=== PATIENT | female | born 2005 | race Caucasian/White ===

== ENCOUNTER 2025-07-15 19:24 | Outpatient (REF) | payer OTHER, SELFPAY ==
--- NOTE | ~2025-07-15 | MR_ITS ---
CLINICAL HISTORY: pain MR left ankle without gadolinium Comparison: None provided Findings: No acute fractures. No pathologic bone lesions. Large subtalar joint effusion. Medial and lateral ligamentous complexes are intact. Flexor, extensor, and peroneal tendons are intact. Achilles tendon is intact. Intact plantar fascia. IMPRESSION: 1. Subtalar joint effusion. This document has been electronically signed by: Guanaco Ramos MD on 07/15/2025 20:28:36
--- OUTSIDE RECORDS SUMMARY | 2025-07-15 19:27 | XMS_ITS | Clinical Summary ---
Author Organization [facility] Address [address] [place] [address] Care Team Providers Care Industrial Roof Plumber Name Role Phone Crystal Luo NP Primary Care Provider + [phone] Social History Tobacco Use Types Packs/Day Years Used Date Smoking Tobacco: Never Assessed Comments Unknown Sex and Gender Information Value Date Recorded Sex Assigned at Not on file Legal Sex Female 9:13 PM EDT Gender Identity Not on file Sexual Orientation Not on file Plan of Treatment Not on file [facility] Care Teams Industrial Roof Plumber Relationship Specialty Start Date End Date Crystal Luo NP [address] [address] PCP - General Pediatrics 10/18/22
--- OUTSIDE RECORDS SUMMARY | 2025-07-15 19:27 | XMS_ITS | Clinical Summary ---
Author Organization [facility] Address [address] [place] [address] Phone Care Team Providers Care Enrollment Consultant Name Role Phone Reece Vasquez MD Primary Care Provider + Reece Vasquez MD Unavailable [phone] Harpreet John MD Unavailable [phone]- Reece Vasquez MD Unavailable [phone] Harpreet John MD Unavailable +[phone]- Reece Vasquez MD Unavailable [phone] Immunizations Immunization Administration Dates Next Due Influenza, Unspecified 06/12/2020 Pfizer Purple Cap SARS-CoV-2 03/23/2021,03/03/20 21 Social History Tobacco Use Types Packs/Day Years Used Date Smoking Tobacco: Never Passive Smoke Exposure: Never Smokeless Tobacco: Never Tobacco Cessation:Counseling Given: Not Answered Comments Unknown Sex and Gender Information Value Date Recorded Sex Assigned at Not on file Legal Sex Female 7:41 PM EDT Gender Identity Not on file Sexual Orientation Not on file Last Filed Vital Signs Vital Sign Reading Time Taken Comments Blood Pressure 126/65 03/17/2025 12:47 PM EDT Pulse - - Temperature - - Respiratory Rate - - Oxygen Saturation - - Inhaled Oxygen Concentration - - Weight 82.5 kg (181 lb 14.1 oz) 025 12:47 PM EDT Height 190.3 cm (6' 2.92 ) 03/17/2025 1 2:47 PM EDT Body Mass Index 22.78 03/17/2025 12:47 PM EDT Plan of Treatment Health Maintenance Due Date Last Done Comments Chlamydia and Gonorrhea Screening 2005 HIV Screening 2005 MMR Vaccines (1 of 1 - Standard series) 2006 HPV Vaccines (2 - 2-dose series) 12/13/2016 06/15/2016 Anemia Screening 2017 DTaP/Tdap/Td Vaccines (2 - Td or Tdap) 10/08/2017 09/10/2017 Varicella Vaccines (1 of 2 - 13+ 2-dose series) 2018 Meningococcal B Vaccine (1 of 2 - Standard) 2021 Hepatitis C Screening 2023 Hepatitis B Vaccines (1 of 3 - 19+ 3-dose series) 02/15/2024 Influenza Vaccine (#1) 2025 , 06/18/2022, 06/17/2021, Additional history exists Meningococcal Vaccine Completed 05/25/2021, 017 Hepatitis A Vaccines Completed 06/10/2022, 05/25/20 21 HIB Vaccines Aged Out No longer eligi ble based on patient's age to complete this topic IPV Vaccines Aged Out No longer eligi ble based on patient's age to complete this topic Pneumococcal Vaccine: Pediatrics (0 to 5 Years) and At-Risk Patients (6 to 49 Years) Aged Out No longer eligible based on patient's age to complete this topic Rotavirus Vaccines Aged Out No longer eligible based on patient's age to complete this topic Insurance [facility] Care Teams Enrollment Consultant Relationship Specialty Start Date End Date Reece Vasquez MD [address] [place] [id number] PCP - General 10/20/08 Reece Vasquez MD [address] [place] [address] PCP - Insurance PCP 05/21/18 Reece Vasquez MD [address] [place] [address] PCP - Clinical PCP 10/27/13 Reece Vasquez MD [address] [place] [address] PCP - Insurance Identified PCP 03/31/24 Harpreet John MD [address] [place] [address] Associate Attending Cardiology 02/10/15 Harpreet John MD [address] [place] [address] HC Associate Professor Of Geology 03/15/24
--- OUTSIDE RECORDS SUMMARY | 2025-07-15 19:27 | XMS_ITS | Encounter Summary ---
Author Organization [facility] Address [address] [place] [address] Care Team Providers Care Senior Corporate Accountant Name Role Phone Crystal Luo NP Primary Care Provider [phone] Encounter Details Date Type Department Care Team (Late st Contact Info) Description 10/18/2022 Lab Requisition [address] [address] Crystal Luo NP [facility] [address] [place] [address] Encounter for other specified special examinations Social History Tobacco Use Types Packs/Day Years Used Date Smoking Tobacco: Never Assessed Comments Unknown Sex and Gender Information Value Date Recorded Sex Assigned at Not on file Legal Sex Female 9:13 PM EDT Gender Identity Not on file Sexual Orientation Not on file documented as of this encounter Plan of Treatment Not on file documented as of this encounter Procedures Procedure Name Priority Date/Time Associated Diagnosis Comments URINE COMPLETE Routine 10/18/2022 5:00 PM EST Encounter for other specified special examinations URINE CULTURE AND COLONY COUNT Routine 10/18/2022 5:00 PM EST Encounter for other specified special examinations documented in this encounter Results * (ABNORMAL) Urine Culture and [place] Count (10/18/2022 5:00 PM EST) Culture > 100,000 colonies/ml Staphylococcus coagulase negative(A) SUSCEPTIBI LITY TESTING 10/19/2022 6:49 PM EST [facility] Urine specimen (specimen) Urine specimen / Unknown Collection / Unknown 10/18/2022 5:00 PM EST 10/18/2022 7:25 PM EST [facility] - 10/19/2022 6:49 PM EST *CLSI guideline: Routine susceptibility testing of urine isolates of Coagulase negative Staph is not advised because infections respond to concentrations achieved in urine of antimicrobial agents commonly used to treat acute, uncomplicated urinary tract infections (i.e., nitrofurantoin, trimeth/sulfa, or a fluoroquinolone.)* Crystal Luo NP MICROBIOLOGY - GENERAL OR DERABLES Final Result [facility] [address] [place] [address] * (ABNORMAL) Urine Complete (10/18/2022 5:00 PM EST) Pathologist [facility] Clarity, UA Turbid(A) Clear 10/18/2022 8:15 PM EST [facility] Color Yellow Yellow 10/18/2022 8:15 PM [facility] Specific [place] 1.031(H) 1.005 - 1.030 10/18/2022 8:15 PM [facility] pH 6.0 5.0 - 7.0 10/18/2022 8:15 PM [facility] Protein 100(A) Negative mg/dL 10/18/2022 8:15 PM [facility] Glucose Negative Negative mg/dL 10/18/2022 8:15 PM [facility] Ketones Negative Negative mg/dL 10/18/2022 8:15 PM [facility] Blood 0.03(A) Negative mg/dL 10/18/2022 8:15 PM [facility] Bilirubin UA Negative Negative mg/dL 10/18/2022 8:15 PM [facility] Urobilinogen Normal Normal mg/dL 10/18/2022 8:15 PM [facility] Nitrite Negative Negative 10/18/2022 8:15 PM [facility] Leukocyte Esterase 250(A) Negative Delmi/uL 10/18/2022 8:15 PM [facility] WBC >100(A) 0 - 2 HPF 10/18/2022 8:15 PM EST [facility] RBC 51-100(A) 0 - 2 HPF 10/18/2022 8:15 PM EST [facility] Squam Epithelial Few Few HPF 10/18/19 8:15 PM EST [facility] Mucus Few Few HPF 10/18/2022 8:15 PM EST [facility] Bacteria Few(A) None Seen HPF 10/18/2022 8:15 PM EST [facility] Urine specimen (specimen) Urine specimen / Unknown Collection / Unknown 10/18/2022 5:00 PM EST 10/18/2022 7:25 PM EST Crystal Luo NP URINE ORDERABLES Final Re sult [facility] [address] [place] [address] documented in this encounter Visit Diagnoses Diagnosis Encounter for other specified special examinations documented in this encounter Care Teams Senior Corporate Accountant Relationship Specialty Start Date End Date Crystal Luo NP [facility] [address] [place] [address] PCP - General Pediatrics 10/18/22 documented as of this encounter
--- OUTSIDE RECORDS SUMMARY | 2025-07-15 19:27 | XMS_ITS | Clinical Summary ---
Author Organization [facility] Address [address] [place] [address] Care Team Providers Care Shovel Logger Name Role Phone Reece Vasquez MD Primary Care Provider [phone] Allergies Active Allergy Reactions Criticality Noted Date Comments Polymyxin B-Trimethoprim 02/24/2024 Medications * This document contains information received from the source organization and may not represent a complete record from that organization. valACYclovir (Valtrex) 1 g tablet 4 Active mupirocin (Bactroban) 2 % ointment Apply topically in the morning and before bedtime. 1 g 5 Active Active Problems No known active problems Social History Tobacco Use Types Packs/Day Years Used Date Smoking Tobacco: Never Tobacco Cessation:Counseling Given: Not Answered Alcohol Use Standard Drinks/Week Comments Never 0 (1 standard drink = 0.6 oz pur e alcohol) Comments Unknown Sex and Gender Information Value Date Recorded Sex Assigned at Not on file Legal Sex Female 8:46 PM EDT Gender Identity Not on file Sexual Orientation Not on file Last Filed Vital Signs Vital Sign Reading Time Taken Comments Blood Pressure 112/73 04/01/2025 10:42 AM EDT Pulse 93 04/01/2025 10:42 AM EDT Temperature 36.8 C (98.2 F) 04/01/2025 10:42 AM EDT Respiratory Rate 18 04/01/2025 10:42 AM EDT Oxygen Saturation 100% 04/01/2025 10:42 AM EDT Inhaled Oxygen Concentration - - Weight - - Height - - Body Mass Index - - Plan of Treatment Health Maintenance Due Date Last Done Comments Hepatitis C Screening 2005 HPV Vaccines (2 - 2-dose series) 12/13/2016 06/15/2016 HIV Screening 02/15/2020 Chlamydia Screening 2021 Annual Wellness Visit 2023 COVID-19 Vaccine ( season) 2025 10/11/2021, 03/23/2021, 03/03/2021 Influenza Vaccine (#1) 2025 , 06/18/2022, 06/17/2021, Additional history exists DTaP,Tdap,and Td Vaccines (2 - Td or Tdap) 09/10/2027 09/10/2017 Meningococcal Vaccine Completed 05/25/2021, 017 Hepatitis A Vaccines Discontinued 06/10/2022, 05/25/20 21 Pneumococcal Vaccine: Pediatrics (0 to 5 Years) and At-Risk Patients (6 to 64 Years) Aged Out No longer eligible based on patient's age to complete this topic Insurance [facility] HMO/POS Care Teams Shovel Logger Relationship Specialty Start Date End Date Reece Vasquez MD [address] [place], [place] [address], [place] [phone] PCP - General Pediatrics 02/24/24
== END 2025-07-15 19:25 | disposition home or self-care (01) ==
LOC: HO.MRI 19:24
PROVIDERS: Visit Provider Student in an Organized Health Care Education/Training Program
DX: M25.572 Pain in left ankle and joints of left foot (principal)
CPT/HCPCS: 73721

== ENCOUNTER → 2025-07-15 19:24 | Outpatient (BNV) | payer OTHER, SELFPAY | PROVIDERS: Visit Provider Specialist | DX: M25.472 Effusion, left ankle (principal) | CPT/HCPCS: 73721 ==

== ENCOUNTER 2025-07-28 12:20 | Outpatient (AMB) | payer OTHER, SELFPAY ==
--- NOTE | 2025-07-28 12:35 | A.OFFVIS_ITS ---
Intake Visit Reasons: post tib tendonitis- stress reaction on medial trav Intake Note: Ayleen is a 20 year old female who presents today as a new patient for an evaluation of her post tib tendonitis. Patient reports her ankle has been doing well and she has not done a lot of weight bearing. She states she has been in the walking boot for about 2 weeks. She would like to know on her next step towards her recovery. Findings: No acute fractures. No pathologic bone lesions. Large subtalar joint effusion. Medial and lateral ligamentous complexes are intact. Flexor, extensor, and peroneal tendons are intact. Achilles tendon is intact. Intact plantar fascia. IMPRESSION: 1. Subtalar joint effusion. 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 She reports a history of a medial malleolar stress fracture on her right ankle a few years ago that was treated with casting for approximately 1-2 months. Recently, she began experiencing a soreness to her left ankle over the past several months, which worsened with activity after practice/drills, which concerned her for a similar injury to her left ankle. An MRI was conducted on 07/15/25, and the [facility] sports medicine doctor(s) placed her in a CAM boot since then. She was recommended referral for management of MRI findings and possible orthotics. She is currently undergoing eccentric exercises and a passive/sitting therapy regimen with her trainers, including calf/hamstring stretching. Review of Systems Const All systems reviewed & are unremarkable except as noted in HPI and below Physical Exam Extrem Other: *Bilateral Lower Extremity Focused Exam Vascular: DP/PT 2/4, CFT<3s to digits, TG warm to cool, mild left medial ankle edema Derm: No open wounds or lacerations. No clinical signs of infection. No ecchymosis or bruising. Neuro: Protective sensation grossly intact to bilateral lower extremities MSK: Moderate tenderness on direct palpation of the anterior-medial aspect of the medial malleolus ((anterior colliculus or inter-colliculus region)). No pain on eversion, external rotation, resisted inversion and eversion. Negative anterior drawer sign. Positive talar tilt with 3:1 ankle inversion to eversion. No pain on palpation or range of motion of the lateral ankle ligaments. No pain to the sinus tarsi. No pain along the posterior tibial tendon from its insertion to its origin. On non-weightbearing, the patient has a moderate to high arch foot type. On weight-bearing: - arch collapses to a normal arch type. - left calcaneus is in neutral position. - bilateral calcaneus invert on heel rise. - single heel rise performed, no pain elicited.. Results Reviewed Results Reviewed: Personal Read: 07/15/2025 MRI left ankle without contrast reviewed which shows: Increased signal on T2 along the medial malleolus with no occult fracture noted, increased signal at the deltoid ligament insertion of the tip of the medial malleolus. 12mm x 5mm thickening of the posterior tibialis tendon, 2 cm proximal to the navicular insertion, no intertendinous tears. Intact ATFL ligament, intact deltoid ligament, intact ATFL. Peroneus tendons appear intact and within normal limits. No osteochondral defects. Anatomic alignment of the tibiotalar joint. Bone density is within normal limits. I personally reviewed the imaging and my findings are listed above. 07/15/2025 MRI left ankle Radiology Impression: Findings: No acute fractures. No pathologic bone lesions. Large subtalar joint effusion. Medial and lateral ligamentous complexes are intact. Flexor, extensor, and peroneal tendons are intact. Achilles tendon is intact. Intact plantar fascia. IMPRESSION: 1. Subtalar joint effusion. Assessment & Plan Assessment & Plan (1) Stress fracture of ankle: Code(s): M84.373A - Stress fracture, unspecified ankle, initial encounter for fracture Category: Medical Qualifiers: Encounter type: initial encounter Laterality: left Qualified Code(s): M84.372A - Stress fracture, left ankle, initial encounter for fracture Plan: * The patient has a history of right medial malleolar stress fracture * The patient has microfracture of the medial malleolar trabecula or bone bruise to the left ankle. It was explained to the patient and the assistant athletic trainer that this could be an early sign of a stress fracture, at least indicating i ncreased stress/loading on her medial malleolus. * Given her contralateral ankle stress fracture history, she was recommended treating this as an early stress fracture. This necessitates at least 4 weeks of protected weight-bearing in a CAM boot followed by gradual weaning with a lace-up ankle brace. * Weight-bearing Recommendation: The patient has been in a CAM boot for complete approximately 2 weeks. She is recommended at least 2 further weeks of weight- bearing in the boot. * Rehab protocol recommendation: Continue passive range of motion exercises for her PT tendon, decrease gastroc-soleus equinus, and gradually transition to weight-bearing eccentric exercises once out of the CAM boot. She may begin protected weight-bearing exercises in 1 week if the patient clinical symptoms continue to improve and no pain is noted. 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 * Follow up in 2 weeks for Orthotics casting prescription referral. We will plan to discontinue the CAM boot at that time and transition to an ankle brace versus compression sleeve. She may not require repeat MRI if she has no clinical symptoms. (2) Ankle ligament laxity: Code(s): M24.273 - Disorder of ligament, unspecified ankle Category: Medical Qualifiers: Laterality: left Qualified Code(s): M24.272 - Disorder of ligament, left ankle Plan: * The patient may be having increased loading to the medial malleolus due to uncompensated varus stress to her medial malleolus due to her lateral ankle ligament laxity. She may require protected sleeve/bracing when playing in addition to her taping. * She will be trialed with a valgus wedge posting of her hindfoot in a custom orthotic device to protect her ankle from increased varus stress during heel strike. * The patient's national sales trainer was recommended sending her previously performed weight-bearing x-rays to our office to evaluate for any subtalar joint compensation that occurs on weight-bearing. Otherwise, she will be referred for new weight-bearing x-rays. Coding Level of Care Code New Pt Level 4 (34873) Diagnoses Stress fracture of left ankle, initial encounter M84.372A Encounter type: initial encounter Laterality: left Ligamentous laxity of left ankle M24.272 Laterality: left Time Spent (min) 45
--- OUTSIDE RECORDS SUMMARY | 2025-07-28 15:01 | XMS_ITS | Clinical Summary ---
Author Organization [facility] Address [address] [place] [address] Care Team Providers Care Engineer Fishing Vessel Name Role Phone Reece Vasquez MD Primary Care Provider [phone] Allergies Active Allergy Reactions Criticality Noted Date [...] patient's age to complete this topic Insurance [facility] HMO/POS Care Teams Engineer Fishing Vessel Relationship Specialty Start Date End Date Reece Vasquez MD [address] [place], [place] [address], [place] [phone] PCP - General Pediatrics 02/24/24
--- OUTSIDE RECORDS SUMMARY | 2025-07-28 15:01 | XMS_ITS | Clinical Summary ---
Author Organization [facility] Address [address] [place] [address] Phone Care Team Providers Care Dairy Associate Name Role Phone Reece Vasquez MD Primary Care Provider [phone] Reece Vasquez MD Unavailable [phone] Harpreet John MD Unavailable [phone]- Reece Vasquez MD Unavailable [phone] Harpreet John MD Unavailable [phone]- Reece Vasquez MD Unavailable [phone] Immunizations Immunization Administration Dates Next Due Influenza, [...] age to complete this topic Insurance [facility] Care Teams Dairy Associate Relationship Specialty Start Date End Date Reece Vasquez MD [address] [place] [id number] PCP - General 10/20/08 Reece Vasquez MD [address] [place] [address] PCP - Insurance PCP 05/21/18 Reece Vasquez MD [address] [place] [id number] PCP - Clinical PCP 10/27/13 Reece Vasquez MD [address] [place] [address] PCP - Insurance Identified PCP 03/31/24 Harpreet John MD [address] [place] [address] Associate Attending Cardiology 02/10/15 Harpreet John MD [address] [place] [address] HC Section Forest Fire Warden 03/15/24
--- OUTSIDE RECORDS SUMMARY | 2025-07-28 15:01 | XMS_ITS | Encounter Summary ---
Author Organization [facility] Address [address] [place] [address] Care Team Providers Care Utilization Management Nurse Name Role Phone Crystal Luo NP Primary Care Provider [phone] Encounter Details Date Type Department Care Team (Late st Contact Info) Description 10/18/2022 Lab Requisition [address] [address] Crystal Luo NP [facility] [address] [place] [address] Encounter for other specified special examinations Social [...] encounter Results * (ABNORMAL) Urine Culture and Maynard Count (10/18/2022 5:00 PM EST) Culture > 100,000 colonies/ml Staphylococcus coagulase negative(A) SUSCEPTIBI LITY TESTING 10/19/2022 6:49 PM EST [facility] Urine specimen (specimen) Urine specimen / Unknown Collection / Unknown 10/18/2022 5:00 PM EST 10/18/2022 7:25 PM EST [facility] - 10/19/2022 6:49 PM EST *CLSI guideline: Routine susceptibility testing of urine isolates of Coagulase negative Staph is not advised because infections respond to concentrations achieved in urine of antimicrobial agents commonly used to treat acute, uncomplicated urinary tract infections (i.e., nitrofurantoin, trimeth/sulfa, or a fluoroquinolone.)* Crystal Luo NP MICROBIOLOGY - GENERAL OR DERABLES Final Result [facility] [address] [place] [address] * (ABNORMAL) Urine Complete (10/18/2022 5:00 PM EST) Pathologist [facility] Clarity, UA Turbid(A) Clear 10/18/2022 8:15 PM EST [facility] Color Yellow Yellow 10/18/2022 8:15 PM [facility] Specific [place] 1.031(H) 1.005 - 1.030 10/18/2022 8:15 PM [facility] pH 6.0 5.0 - 7.0 10/18/2022 8:15 PM [facility] Protein 100(A) Negative mg/dL 10/18/2022 8:15 PM [facility] Glucose Negative Negative mg/dL 10/18/2022 8:15 PM [facility] Ketones Negative Negative mg/dL 10/18/2022 8:15 PM [facility] Blood 0.03(A) Negative mg/dL 10/18/2022 8:15 PM [facility] Bilirubin UA Negative Negative mg/dL 10/18/2022 8:15 PM [facility] Urobilinogen Normal Normal mg/dL 10/18/2022 8:15 PM [facility] Nitrite Negative Negative 10/18/2022 8:15 PM [facility] Leukocyte Esterase 250(A) Negative Delmi/uL 10/18/2022 8:15 PM [facility] WBC >100(A) 0 - 2 HPF 10/18/2022 8:15 PM EST [facility] RBC 51-100(A) 0 - 2 HPF 10/18/2022 8:15 PM EST [facility] Squam Epithelial Few Few HPF 10/18/19 8:15 PM EST [facility] Mucus Few Few HPF 10/18/2022 8:15 PM EST [facility] Bacteria Few(A) None Seen HPF 10/18/2022 8:15 PM EST [facility] Urine specimen (specimen) Urine specimen / Unknown Collection / Unknown 10/18/2022 5:00 PM EST 10/18/2022 7:25 PM EST Crystal Luo NP URINE ORDERABLES Final Re sult [facility] [address] [place] [address] documented in this encounter Visit Diagnoses Diagnosis Encounter for other specified special examinations documented in this encounter Care Teams Utilization Management Nurse Relationship Specialty Start Date End Date Crystal Luo NP [facility] [address] [place] [address] PCP - General Pediatrics 10/18/22 documented as of this encounter
--- OUTSIDE RECORDS SUMMARY | 2025-07-28 15:01 | XMS_ITS | Clinical Summary ---
Author Organization [facility] Address [address] [place] [address] Care Team Providers Care Funeral Pre Arrangement Specialist Name Role Phone Crystal Luo NP Primary Care Provider + [phone] Social History Tobacco Use Types Packs/Day Years Used Date Smoking Tobacco: Never Assessed Comments Unknown Sex and Gender Information Value Date Recorded Sex Assigned at Not on file Legal Sex Female 9:13 PM EDT Gender Identity Not on file Sexual Orientation Not on file Plan of Treatment Not on file Insurance [facility] Care Teams Funeral Pre Arrangement Specialist Relationship Specialty Start Date End Date Crystal Luo NP [address] [address] PCP - General Pediatrics 10/18/22
== END 2025-07-28 13:04 | disposition home or self-care (01) ==
LOC: HO.HPODS 12:21
PROVIDERS: Visit Provider Student in an Organized Health Care Education/Training Program
DX: M84.372A Stress fracture, left ankle, initial encounter for fracture (principal); M24.272 Disorder of ligament, left ankle
CPT/HCPCS: 99204

== ENCOUNTER 2025-08-13 10:32 | Outpatient (AMB) | payer OTHER, SELFPAY ==
[2025-08-13 10:43] VITALS: BMI 21.9
--- NOTE | 2025-08-13 10:43 | MHC.OFFVIS ---
Vital Signs 08/13/25 10:43 Height 6 ft 4 in Weight 180 lb BMI 21.9 Intake Visit Reasons: post tib tendonitis- stress reaction on medial trav Intake Note: Ayleen is a 20 year old female who presents to the office today for a 2 week follow up post tib tendonitis- stress reaction on medial trav. At last visit patient was recommended at least 2 further weeks of weight-bearing in the boot. Pt states she has been doing well and she has not experiences any pain with the boot. 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 She has been weight-bearing in her cam boot at all times other than when performing rehabilitation exercises with her trainers. She was casted for custom foot orthoses at [facility] this past Sunday. She notes she has no pain at all at this point, even when she is jogging and doing light drills. History: She reports a history of a medial malleolar stress fracture on her right ankle a few years ago that was treated with casting for approximately 1-2 months. Recently, she began experiencing a soreness to her left ankle over the past several months, which worsened with activity after practice/drills, which concerned her for a similar injury to her left ankle. An MRI was conducted on 07/15/25, and the [facility] sports medicine doctor(s) placed her in a CAM boot since then. She was recommended referral for management of MRI findings and possible orthotics. Physical Exam Vital Signs: BMI result Body Mass Index 21.9 Extrem Other: *Bilateral Lower Extremity Focused Exam Vascular: DP/PT 2/4, CFT<3s to digits, TG warm to cool, mild left medial ankle edema Derm: No open wounds or lacerations. No clinical signs of infection. No ecchymosis or bruising. Neuro: Protective sensation grossly intact to bilateral lower extremities MSK: No tenderness on direct palpation of the anterior-medial aspect of the medial malleolus ((anterior colliculus or inter-colliculus region)). No pain on eversion, external rotation, resisted inversion and eversion. Negative anterior drawer sign. Positive talar tilt with 3:1 ankle inversion to eversion. No pain on palpation or range of motion of the lateral ankle ligaments. No pain to the sinus tarsi. No pain along the posterior tibial tendon from its insertion to its origin. On non-weightbearing, the patient has a moderate to high arch foot type. On weight-bearing: - arch collapses to a normal arch type. - left calcaneus is in neutral position. - bilateral calcaneus invert on heel rise. - single heel rise performed, no pain elicited.. Results Reviewed Results Reviewed: Podiatry X-ray Read: 08/13/2025 X-ray left calcaneus two views (Axial, Lateral) reviewed which shows neutral hindfoot alignment, no subtalar joint incongruity. Bone density is within normal limits. Normal anatomy. No evidence of swelling, foreign body, or calcifications. I personally reviewed the imaging and my findings are listed above. Personal Read: 07/15/2025 MRI left ankle without contrast reviewed which shows: Increased signal on T2 along the medial malleolus with no occult fracture noted, increased signal at the deltoid ligament insertion of the tip of the medial malleolus. 12mm x 5mm thickening of the posterior tibialis tendon, 2 cm proximal to the navicular insertion, no intertendinous tears. Intact ATFL ligament, intact deltoid ligament, intact ATFL. Peroneus tendons appear intact and within normal limits. No osteochondral defects. Anatomic alignment of the tibiotalar joint. Bone density is within normal limits. I personally reviewed the imaging and my findings are listed above. 07/15/2025 MRI left ankle Radiology Impression: Findings: No acute fractures. No pathologic bone lesions. Large subtalar joint effusion. Medial and lateral ligamentous complexes are intact. Flexor, extensor, and peroneal tendons are intact. Achilles tendon is intact. Intact plantar fascia. IMPRESSION: 1. Subtalar joint effusion. Assessment & Plan Assessment & Plan (1) Stress fracture of ankle: Code(s): M84.373A - Stress fracture, unspecified ankle, initial encounter for fracture Category: Medical Qualifiers: Encounter type: initial encounter Laterality: left Qualified Code(s): M84.372A - Stress fracture, left ankle, initial encounter for fracture Plan: The patient has a history of right medial malleolar stress fracture The patient has microfracture of the medial malleolar trabecula or bone bruise to the left ankle. It was explained to the patient and the driver trainer that this could be an early sign of a stress fracture, at least indicating increased stress/loading on her medial malleolus. Given her contralateral ankle stress fracture history, she was recommended treating this as an early stress fracture. This necessitates at least 4 weeks of protected weight-bearing in a CAM boot followed by gradual weaning with an ASO. Weight-bearing Recommendation: Discontinue CAM boot. The patient may now transition from her cam boot to an ASO. Rehab protocol recommendation: Continue passive range of motion exercises for her PT tendon, decrease gastroc-soleus equinus, and gradually transition to weight-bearing eccentric exercises once out of the CAM boot. She may begin increasing her rehab/therapy. Her current etiology of her medial malleolar loading appears to be due to lateral ankle laxity which is causing medial tibial loading on heel strike. Thus, a orthotic prescription was dispensed with a rearfoot valgus post (3-4 degrees), which may need to be further increased her if her symptoms return. Verbal instructions were given regarding a break-in period. Follow up in 2 month for orthotic check and medial malleolar pain. May recommend repeat x-ray. (2) Ankle ligament laxity: Code(s): M24.273 - Disorder of ligament, unspecified ankle Category: Medical Qualifiers: Laterality: left Qualified Code(s): M24.272 - Disorder of ligament, left ankle Plan: The patient may be having increased loading to the medial malleolus due to uncompensated varus stress to her medial malleolus due to her lateral ankle ligament laxity. She may longterm require ankle compression sleeve versus playing with a brace if she has recurrent ankle sprains, new stress fracture, or fails her foot orthotic. Alternatively, she may require lateral ankle ligament reconstruction. However, she states her last ankle sprain was last season so she currently is not required to proceed with the ligament reconstruction at this point. 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
--- OUTSIDE RECORDS SUMMARY | 2025-08-13 12:52 | XMS_ITS | Clinical Summary ---
Author Organization [facility] Address [address] [place] [address] Phone Care Team Providers Care Roads Supervisor Name Role Phone Reece Vasquez MD Primary Care Provider [phone] Reece Vasquez MD Unavailable [phone] Harpreet John MD Unavailable [phone]- Reece Vasquez MD Unavailable [phone] Harpreet John MD Unavailable [phone]- Reece Vasquez [...] patient's age to complete this topic Insurance [facility] Care Teams Roads Supervisor Relationship Specialty Start Date End Date Reece Vasquez MD [address] [place] [id number] PCP - General 10/20/08 Reece Vasquez MD [address] [place] [address] PCP - Insurance PCP 05/21/18 Reece Vasquez MD [address] [place] [id number] PCP - Clinical PCP 10/27/13 Reece Vasquez MD [address] [place] [address] PCP - Insurance Identified PCP 03/31/24 Harpreet John MD [address] [place] [address] Associate Attending Cardiology 02/10/15 Harpreet John MD [address] [place] [address] HC Radio Equipment Repairer 03/15/24
--- OUTSIDE RECORDS SUMMARY | 2025-08-13 12:52 | XMS_ITS | Clinical Summary ---
Author Organization [facility] Address [address] [place] [address] Care Team Providers Care Mixed Crop Farmer Name Role Phone Reece Vasquez MD Primary Care Provider [phone] Allergies Active Allergy Reactions Criticality Noted Date [...] patient's age to complete this topic Insurance [facility] HMO/POS Care Teams Mixed Crop Farmer Relationship Specialty Start Date End Date eRece Vasquez MD [address] [place], [place] [address], [place] [phone] PCP - General Pediatrics 02/24/24
== END 2025-08-13 11:01 | disposition home or self-care (01) ==
LOC: HO.HPODS 10:33
PROVIDERS: Visit Provider Student in an Organized Health Care Education/Training Program
DX: M84.372A Stress fracture, left ankle, initial encounter for fracture (principal); M24.272 Disorder of ligament, left ankle
CPT/HCPCS: 99213

== ENCOUNTER 2025-08-13 10:32 | Outpatient (REF) | payer OTHER, SELFPAY ==
--- NOTE | ~2025-08-13 | XR_ITS ---
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 TECHNIQUE: Single axial weightbearing view was performed as per physician request. A lateral view was not requested and not performed FINDINGS: On a single axial view there is no calcaneal spur, erosive changes, fracture or soft tissue abnormality. XR/XR calcaneus LT min 2V IMPRESSION: Limited axial left calcaneus view reveals no bony abnormality. Electronically signed by: Duc Hernandez MD 08/13/2025 12:34 PM EDT
--- OUTSIDE RECORDS SUMMARY | 2025-08-13 14:25 | XMS_ITS | Encounter Summary ---
Author Organization [facility] Address [address] [place] [address] Care Team Providers Care Scrap Breaker Name Role Phone Crystal Luo NP Primary Care Provider [phone] Encounter Details Date Type Department Care Team (Late st Contact Info) Description 10/18/2022 Lab Requisition [address] [address] Crystal Luo NP [facility] [address] [place] [address] Encounter for other specified special examinations Social [...] encounter Results * (ABNORMAL) Urine Culture and Outing Count (10/18/2022 5:00 PM EST) Culture > 100,000 colonies/ml Staphylococcus coagulase negative(A) SUSCEPTIBI LITY TESTING 10/19/2022 6:49 PM EST [facility] Urine specimen (specimen) Urine specimen / Unknown Collection / Unknown 10/18/2022 5:00 PM EST 10/18/2022 7:25 PM EST [facility] - 10/19/2022 6:49 PM EST *CLSI guideline: Routine susceptibility testing of urine isolates of Coagulase negative Staph is not advised because infections respond to concentrations achieved in urine of antimicrobial agents commonly used to treat acute, uncomplicated urinary tract infections (i.e., nitrofurantoin, trimeth/sulfa, or a fluoroquinolone.)* Crystal Luo NP MICROBIOLOGY - GENERAL OR DERABLES Final Result [facility] [address] [place] [address] * (ABNORMAL) Urine Complete (10/18/2022 5:00 PM EST) Pathologist [facility] Clarity, UA Turbid(A) Clear 10/18/2022 8:15 PM EST [facility] Color Yellow Yellow 10/18/2022 8:15 PM [facility] Specific Phillips 1.031(H) 1.005 - 1.030 10/18/2022 8:15 PM [facility] pH 6.0 5.0 - 7.0 10/18/2022 8:15 PM [facility] Protein 100(A) Negative mg/dL 10/18/2022 8:15 PM [facility] Glucose Negative Negative mg/dL 10/18/2022 8:15 PM [facility] Ketones Negative Negative mg/dL 10/18/2022 8:15 PM [facility] Blood 0.03(A) Negative mg/dL 10/18/2022 8:15 PM [facility] Bilirubin UA Negative Negative mg/dL 10/18/2022 8:15 PM [facility] Urobilinogen Normal Normal mg/dL 10/18/2022 8:15 PM [facility] Nitrite Negative Negative 10/18/2022 8:15 PM [facility] Leukocyte Esterase 250(A) Negative Delmi/uL 10/18/2022 8:15 PM [facility] WBC >100(A) 0 - 2 HPF 10/18/2022 8:15 PM EST [facility] RBC 51-100(A) 0 - 2 HPF 10/18/2022 8:15 PM EST [facility] Squam Epithelial Few Few HPF 10/18/19 8:15 PM EST [facility] Mucus Few Few HPF 10/18/2022 8:15 PM EST [facility] Bacteria Few(A) None Seen HPF 10/18/2022 8:15 PM EST [facility] Urine specimen (specimen) Urine specimen / Unknown Collection / Unknown 10/18/2022 5:00 PM EST 10/18/2022 7:25 PM EST Crystal Luo NP URINE ORDERABLES Final Re sult [facility] [address] [place] [address] documented in this encounter Visit Diagnoses Diagnosis Encounter for other specified special examinations documented in this encounter Care Teams Scrap Breaker Relationship Specialty Start Date End Date Crystal Luo NP [facility] [address] [place] [address] PCP - General Pediatrics 10/18/22 documented as of this encounter
--- OUTSIDE RECORDS SUMMARY | 2025-08-13 14:25 | XMS_ITS | Clinical Summary ---
Author Organization [facility] Address [address] [place] [address] Care Team Providers Care Senior Manager Name Role Phone Crystal Luo NP Primary Care Provider + [phone] Social History Tobacco Use Types Packs/Day Years Used Date Smoking Tobacco: Never Assessed Comments Unknown Sex and Gender Information Value Date Recorded Sex Assigned at Not on file Legal Sex Female 9:13 PM EDT Gender Identity Not on file Sexual Orientation Not on file Plan of Treatment Not on file [facility] Care Teams Senior Manager Relationship Specialty Start Date End Date Crystal Luo NP [address] [address] PCP - General Pediatrics 10/18/22
== END 2025-08-13 10:33 | disposition home or self-care (01) ==
LOC: HO.XRAY 10:32
PROVIDERS: Visit Provider Student in an Organized Health Care Education/Training Program
DX: M84.372D Stress fracture, left ankle, subsequent encounter for fracture with routine healing (principal); M24.272 Disorder of ligament, left ankle; Q66.71 Congenital pes cavus, right foot; Q66.72 Congenital pes cavus, left foot
CPT/HCPCS: 73650

== ENCOUNTER → 2025-08-13 11:32 | Outpatient (BNV) | payer OTHER, SELFPAY | PROVIDERS: Visit Provider Radiology Diagnostic Radiology | DX: Q66.71 Congenital pes cavus, right foot (principal) | CPT/HCPCS: 73650 ==